=== PATIENT | male | born 1970 | race Caucasian/White ===

== ENCOUNTER 2016-12-30 07:20 | Emergency (ER) | payer OTHER ==
[2016-12-30 07:28] VITALS: BP 140/95; PULSE 81; RESP 18; TEMP 98.1
[2016-12-30] MEDS ORDERED: DIPH,PERTUS(ACELL)TETVAC-LF 0.5 ML VIAL IM ONE (08:21)
--- NOTE | 2016-12-30 08:49 | ED ---
General Adult HPI - General Chief complaint: Skin/Abscess/Foreign Body Stated complaint: Thunb laceration-[facility] Time Seen by Provider: 12/30/16 08:18 Source: patient, RN notes reviewed Mode of arrival: ambulatory Limitations: no limitations - History of Present Illness Initial comments: Patient is a 46-year-old male who presents emergency room today with a chief complaint of a laceration to the right thumb. He states he was at work moving a metal barrel when it is a sharp piece which causes laceration. States her work to come here to the emergency room to have it checked. He states tetanus is not up-to-date. He denies any other complaints or symptoms. Patient denies any recent fever, chills, shortness of breath, chest pain, back pain, abdominal pain, nausea or vomiting, numbness or tingling, dysuria or hematuria, constipation or diarrhea, headaches or visual changes, or any other complaints. - Related Data Home Medications Medication Instructions Recorded Confirmed Albuterol Inhaler [Ventolin Hfa 1 - 2 puff INHALATION RT-Q6H PRN 12/30/16 Inhaler] Albuterol Nebulized [Ventolin 2.5 mg INHALATION RT-Q6H PRN 12/30/16 12/30/16 Nebulized] Allopurinol [Zyloprim] 200 mg PO DAILY PRN 12/30/16 12/30/16 Fluticasone/Salmeterol [Advair 1 inhalation PO RT-DAILY 12/30/16 12/30/16 500-50 Diskus] Ibuprofen [Motrin] 800 mg PO TID PRN 12/30/16 12/30/16 Lansoprazole [Prevacid] 30 mg PO DAILY 12/30/16 12/30/16 Allergies Allergy/AdvReac Type Severity Reaction Status Date / Time No Known Allergies Allergy Verified 12/30/16 07:56 Review of Systems ROS Statement: Those systems with pertinent positive or pertinent negative responses have been documented in the HPI. ROS Other: All systems not noted in ROS Statement are negative. Past Medical History Past Medical History: Asthma, GERD/Reflux, Hypertension Additional Past Medical History / Comment(s): gout History of Any Multi-Drug Resistant Organisms: None Reported Past Surgical History: Orthopedic Surgery Additional Past Surgical History / Comment(s): right knee surgery, cyst removed from tailbone Past Psychological History: No Psychological Hx Reported Smoking Status: Former smoker Past Alcohol Use History: Occasional Past Drug Use History: None Reported General Exam - General Exam Comments Initial Comments: General: The patient is awake and alert, in no distress, and does not appear acutely ill. Neck: The neck is supple, there is no tenderness or JVD. Cardiovascular: There is a regular rate and rhythm. No murmur, rub or gallop is appreciated. Respiratory: Lungs are clear to auscultation, respirations are non-labored, breath sounds are equal. No wheezes, stridor, rales, or rhonchi. Musculoskeletal: Patient shows full range motion. Sensation intact. Pulses equal bilaterally 2+ strength 5/5. Neurological: A&O x 3. CN II-XII intact, There are no obvious motor or sensory deficits. Coordination appears grossly intact. Speech is normal. Skin: Patient does have small laceration superficial in nature to the volar aspect of the right thumb. No active bleeding. Measures less than a centimeter. Psychiatric: Normal mood and affect. Limitations: no limitations Course Vital Signs 12/30/16 07:23 Temperature 98.1 F Pulse Rate 81 Respiratory 18 Rate Blood Pressure 140/95 O2 Sat by Pulse 97 Oximetry Medical Decision Making - Medical Decision Making Patient's wound was cleaned here in the emergency room is no suturable wound. There is a small skin avulsion very superficial. Patient agreement that he does not need sutures. Will be discharged home. Watch for signs of infection. Since been updated. Disposition Clinical Impression: Laceration Disposition: HOME SELF-CARE Condition: Good Instructions: Laceration (ED) Additional Instructions: Please watch for any signs of infection as discussed with return here to emergency room if there is any concerns. Referrals: Donnie Bateman DO [Primary Care Provider] - 1-2 days Time of Disposition: 08:48
== END 2016-12-30 09:10 | disposition home or self-care (01) ==
LOC: EC 07:20
DX: S61.011A Laceration without foreign body of right thumb without damage to nail, initial encounter (principal); J45.909 Unspecified asthma, uncomplicated; K21.9 Gastro-esophageal reflux disease without esophagitis; I10 Essential (primary) hypertension; M10.9 Gout, unspecified; Z23 Encounter for immunization; Z87.891 Personal history of nicotine dependence; Z79.51 Long term (current) use of inhaled steroids; Z79.899 Other long term (current) drug therapy; Y99.0 Civilian activity done for income or pay; W26.8XXA Contact with other sharp object(s), not elsewhere classified, initial encounter
CPT/HCPCS: 90471; 90715; 99282

== ENCOUNTER → 2017-06-29 | Outpatient (CLI) | payer BC ==
--- NOTE | 2017-06-29 08:17 | US ---
EXAMINATION TYPE: US abdomen complete DATE OF EXAM: 06/29/2017 COMPARISON: CT dated 03/26/2012 CLINICAL HISTORY: R10.9 Unspecified Abdominal Pain. Elevated liver enzymes per patient. LUQ pain. EXAM MEASUREMENTS: Liver Length: 14.4 cm Gallbladder Wall: 0.3 cm CBD: 0.4 cm Spleen: 12.2 cm Right Kidney: 10.9 x 5.7 x 6.2 cm Left Kidney: 11.4 x 5.9 x 6.5 cm Limited study due to body habitus and bowel gas. Pancreas: not visualized due to body habitus and bowel gas Liver: difficult to penetrate Gallbladder: No stones seen Evidence for sonographic Husain's sign: No CBD: wnl Spleen: wnl Right Kidney: No hydronephrosis or masses seen Left Kidney: No hydronephrosis or masses seen Upper IVC: wnl Abd Aorta: limited visualization due to bowel gas No evident ascites. The liver is homogenous but shows increased cortical echogenicity. The intrahepatic portion of the I VC and proximal abdominal aorta are within normal limits. There is no evidence of cholelithiasis. C ommon bile duct is unremarkable. The visualized portions of the pancreas are homogenous. The spleen is unremarkable. Kidneys are symmetric and free of hydronephrosis, cortical medullary differentiati on is maintained. No renal lesions are seen. IMPRESSION: Consider hepatocellular disease, hepatic steatosis. Somewhat limited exam.
== END | disposition home or self-care (01) ==
LOC: RADUSWWP 06:56
PROVIDERS: ATTEND Family Medicine
DX: R10.9 Unspecified abdominal pain (principal)
CPT/HCPCS: 76700

== ENCOUNTER → 2017-07-21 | Outpatient (CLI) | payer BC ==
--- NOTE | 2017-07-21 09:18 | NM ---
Nuclear medicine hepatobiliary scan. HISTORY: Pain. DOSAGE: The patient received 8 ounces of ensure plus and 5 mCi of Technetium 99m Choletec. FINDINGS: There is normal hepatic extraction. The gallbladder is seen by 20 minutes. There is bilia ry to bowel clearance by 20 minutes. Ejection fraction is 78%. IMPRESSION: 1. Normal hepatobiliary exam
== END | disposition home or self-care (01) ==
LOC: RADNMMAIN 06:36
PROVIDERS: ATTEND Family Medicine
DX: R10.9 Unspecified abdominal pain (principal)
CPT/HCPCS: 78226; A9537

== ENCOUNTER 2017-07-27 11:40 | Day surgery (SDC) | payer BC ==
[2017-07-24 10:22] VITALS: BMI 34.7
[~2017-07-27 11:40] MED LIST: LACTATED RINGERS 1,000 ML IV SCH
[2017-07-27 11:57] VITALS: RESP 16; TEMP 97.2
[2017-07-27] MEDS ORDERED: LIDOCAINE 1% 20 ML VIAL (10MG/ML) FOR IV START INTRADERMA ONE (11:59)
[2017-07-27] MEDS ORDERED: fentaNYL (PF) 50 MCG/ML 2 ML AMP ONE (13:07)
[2017-07-27] MEDS ORDERED: LIDOCAINE 1% INJ 10MG/ML (20 ML MDV) ONE (13:07)
[2017-07-27] MEDS ORDERED: PROPOFOL 10 MG/ML 20 ML VIAL IV ONE (13:07)
--- NOTE | 2017-07-27 13:09 | P.GSHP ---
History of Present Illness H&P Date: 07/27/17 Chief Complaint: GERD, constipation This a 47-year-old male who's had issues with GERD patient. He presents today for EGD and colonoscopy. Past Medical History Past Medical History: Asthma, GERD/Reflux, Hypertension Additional Past Medical History / Comment(s): gout, migraines, occ wheezing, History of Any Multi-Drug Resistant Organisms: None Reported Past Surgical History: Orthopedic Surgery Additional Past Surgical History / Comment(s): right knee arthroscopy, cyst removed from tailbone Past Anesthesia/Blood Transfusion Reactions: No Reported Reaction Smoking Status: Former smoker - Past Family History Father Family Medical History: Cancer Medications and Allergies Home Medications Medication Instructions Recorded Confirmed Type Albuterol Inhaler [Ventolin Hfa 1 - 2 puff INHALATION Q6HR PRN 12/30/16 History Inhaler] Albuterol Nebulized [Ventolin 2.5 mg INHALATION Q6HR PRN 12/30/16 07/27/17 History Nebulized] Allopurinol [Zyloprim] 100 mg PO BID PRN 12/30/16 07/27/17 History Fluticasone/Salmeterol [Advair 1 inhalation PO DAILY 12/30/16 07/27/17 History 500-50 Diskus] Ibuprofen [Motrin] 800 mg PO TID PRN 12/30/16 07/27/17 History Lansoprazole [Prevacid] 30 mg PO DAILY PRN 12/30/16 07/27/17 History Telmisartan [Micardis] 80 mg PO DAILY 07/24/17 07/27/17 History Allergies Allergy/AdvReac Type Severity Reaction Status Date / Time No Known Allergies Allergy Verified 07/24/17 10:11 Surgical - Exam Vital Signs Temp Pulse Resp BP Pulse Ox 97.2 F L 83 16 133/92 98 07/27/17 11:56 07/27/17 11:56 07/27/17 11:56 07/27/17 11:56 07/27/17 11:56 - General well developed, no distress - Eyes PERRL - ENT normal pinna - Neck no masses - Respiratory normal expansion - Cardiovascular Rhythm: regular - Abdomen Abdomen: soft, non tender Assessment and Plan Assessment: GERD, constipation. We'll perform EGD and colonoscopy.
--- NOTE | 2017-07-27 13:24 | P.OP ---
Date of Procedure: 07/27/17 Preoperative Diagnosis: GERD Constipation Postoperative Diagnosis: Antral gastritis No significant hiatal hernia Mild esophagitis Normal colonoscopy Procedure(s) Performed: EGD Colonoscopy Anesthesia: MAC Surgeon: Jace Serrano Pathology: other (Antral, esophagus) Condition: stable Disposition: PACU Description of Procedure: The patient's placed on the endoscopy table in the lateral position. He received IV sedation. The gastroscope placed oropharynx and passed in the esophagus into the stomach. Scope was then placed through the pylorus. The first and second portion of the duodenum appeared normal. Scope was then brought back the antrum this. Mildly inflamed. A biopsies performed. The scope was then retroflexed and the remainder of the stomach appeared normal. There is no significant hiatal hernia. The GE junction was at 40 cm. The distal esophagus appeared mildly inflamed and a biopsies performed. The proximal esophagus appeared normal. Scope was withdrawn from patient. Next, The patient was placed on the endoscopy table in the lateral position. Digital rectal examination was performed which revealed no abnormalities. The prostate was symmetrical without nodules. Flexible colonoscope was then placed in the patient's anus and passed throughout the entire colon. The ileocecal valve was visualized. The cecum, ascending, transverse, descending and sigmoid colon were normal. The rectum was normal as well. There were no masses, polyps or diverticula noted in the entire colon.
[2017-07-27 13:49] VITALS: BP 132/91; PULSE 88
== END 2017-07-27 14:02 | disposition home or self-care (01) ==
LOC: ORWHC2ENDO 11:40
PROVIDERS: ATTEND Surgery
DX: K29.50 Unspecified chronic gastritis without bleeding (principal); K21.0 Gastro-esophageal reflux disease with esophagitis; K22.10 Ulcer of esophagus without bleeding; K59.00 Constipation, unspecified; J45.909 Unspecified asthma, uncomplicated; I10 Essential (primary) hypertension; M10.9 Gout, unspecified; G43.909 Migraine, unspecified, not intractable, without status migrainosus; Z79.51 Long term (current) use of inhaled steroids; Z79.899 Other long term (current) drug therapy; Z87.891 Personal history of nicotine dependence
CPT/HCPCS: 88305; 88312; 45378; 43239; J2001; J3010; J2704

== ENCOUNTER → 2017-08-18 | Outpatient (CLI) | payer BC ==
--- NOTE | 2017-08-19 16:43 | ECHOF ---
Referral Reason: MEASUREMENTS -------- HEIGHT: 177.8 cm WEIGHT: 108.4 kg BP: RVIDd: 3.3 cm (< 3.3) IVSd: 1.3 cm (0.6 - 1.1) LVIDd: 5.1 cm (3.9 - 5.3) LVPWd: 1.3 cm (0.6 - 1.1) IVSs: 1.6 cm LVIDs: 3.9 cm LVPWs: 1.6 cm LAESV Index (A-L): 22.30 ml/m Ao Diam: 3.2 cm (2.0 - 3.7) AV Cusp: 1.9 cm (1.5 - 2.6) LA Diam: 3.2 cm (2.7 - 3.8) EPSS: 0.7 cm MV E Nathan: 0.97 m/s MV DecT: 248 ms MV A Nathan: 0.97 m/s MV E/A Ratio: 0.99 RAP: 5.00 mmHg RVSP: 17.32 mmHg MV EF SLOPE: 108.99 mm/s (70 - 150) MV EXCURSION: 2.08 cm (> 18.000) FINDINGS -------- Sinus rhythm. This was a technically adequate study. The left ventricular size is normal. There is mild concentric left ventricular hypertrophy. Overa ll left ventricular systolic function is normal with, an EF between 55 - 60 %. The right ventricle is normal in size and function. Normal LA size by volume 22+/-6 ml/m2. The right atrium is normal in size. The aortic valve is trileaflet, and appears structurally normal. No aortic stenosis or regurgitation. The mitral valve leaflets are mildly thickened. There is trace to mild mitral regurgitation. Trace tricuspid regurgitation present. Right ventricular systolic pressure is normal at < 35 mmHg. There is no evidence of pulmonary hypertension. The pulmonic valve was not well visualized. The aortic root size is normal. Normal inferior vena cava with normal inspiratory collapse consistent with estimated right atrial pre ssure of 5 mmHg. There is no pericardial effusion. CONCLUSIONS -------- 1. Sinus rhythm. 2. This was a technically adequate study. 3. The left ventricular size is normal. 4. There is mild concentric left ventricular hypertrophy. 5. Overall left ventricular systolic function is normal with, an EF between 55 - 60 %. 6. Normal LA size by volume 22+/-6 ml/m2. 7. The aortic valve is trileaflet, and appears structurally normal. No aortic stenosis or regurgitati on. 8. The mitral valve leaflets are mildly thickened. 9. There is trace to mild mitral regurgitation. 10. Trace tricuspid regurgitation present. 11. Right ventricular systolic pressure is normal at < 35 mmHg. 12. There is no evidence of pulmonary hypertension. 13. The pulmonic valve was not well visualized. 14. The aortic root size is normal. 15. There is no pericardial effusion. [employer] SALES REPRESENTATIVE: Adrian Varela RDCS
== END | disposition home or self-care (01) ==
LOC: RADECHMAIN 15:46
PROVIDERS: ATTEND Family Medicine
DX: I08.1 Rheumatic disorders of both mitral and tricuspid valves (principal)
CPT/HCPCS: 93306

== ENCOUNTER → 2017-08-21 | Outpatient (CLI) | payer BC ==
--- NOTE | 2017-08-21 12:32 | EST ---
EXERCISE STRESS DATE OF SERVICE: 08/21/2017 AGE: 47 SEX: Male HT: 5'10" WT: 239 PROTOCOL: Misha STAGE: II DURATION OF EXERCISE: 7 minutes, 30 seconds. HEART RATE REST: 80 BLOOD PRESSURE REST: 150/80 MAXIMUM HEART RATE ACHIEVED: 151 MAXIMUM BLOOD PRESSURE: 198/85 85% MPHR: 149 100% MPHR: 175 METS: 9.1 INDICATIONS: Abnormal EKG. CLINICAL INFORMATION: Baseline EKG revealed normal sinus rhythm without significant ST-T changes. Patient walked for 7 minutes 30 seconds and achieved a maximal heart rate of 151 beats per minute which is 86% of predicted maximal. He developed fatigue and shortness of breath but did not have any angina or arrhythmia. EKG did not reveal any ST-segment changes to indicate ischemia. Rare PVCs were noted and there was no angina. EKG did not reveal any ST-segment changes to indicate ischemia. This is a negative stress test with fair exercise capacity. Peak blood pressure was 198/85. Resting blood pressure was 150/80. FINAL IMPRESSION: Negative stress test with fair exercise capacity by EKG criteria. MMODL / IJN: [id number] /
== END | disposition home or self-care (01) ==
LOC: RADNMMAIN 09:45
PROVIDERS: ATTEND Family Medicine
DX: I49.9 Cardiac arrhythmia, unspecified (principal); R07.9 Chest pain, unspecified
CPT/HCPCS: 93017

== ENCOUNTER → 2022-10-27 | Outpatient (CLI) | payer BC ==
--- NOTE | 2022-10-27 13:06 | CA ---
Exercise Stress Test Report Name: Marcos Lynn Exam Date: 10/27/2022 08:59 Exam Location: [place] Stress Ht (in): 70 Wt (lb): 238 BSA: 2.25 Ordering Phys: Donnie Bateman DO Referring Phys: IRIS, Technologist: Donnie Dai Age: 52 Gender: M : 1970 Procedure CPT: Indications: I10 Essential Hypertension ICD-10 Codes: Patient History: CHEST PAIN, PALPITATIONS, HTN, ELEVATED CHOLESTEROL LEVELS, FAMILY HX OF HEART DISEASE, PRIOR SMOKER, ASTHMA Medications: Meds past 24 hrs: Pretest Chest Pain: STRESS TEST Misha Protocol Exercise Duration (min:sec): 10:[address] Depressions (mm): Angina Score: Chin Score: Resting HR (bpm): 87 Peak HR (bpm): 158 Resting BP (mmHg): 124 / 78 Peak BP (mmHg): 200 / 66 MPHR: 170 Target HR: 145 % MPHR: 93 METS: 11.8 Total Dose: Peak Dose: Atropine: Double Product: 46324 BP Response: Stress Termination: MAX EXERTION/TARGET HR Stress Symptoms: NO SYMPTOMS Stress Summary: The patient's target heart rate was achieved ECG ANALYSIS Resting ECG: Sinus rhythm. Incomplete right bundle branch block. Atrial premature contraction. Stress ECG: Right bundle branch block. CONCLUSIONS 1. Good exercise tolerance 2. Nondiagnostic test electrocardiographic stress testing with complete right bundle branch block at peak exercise was a half a millimeter steep upsloping ST segment depression. 3. If clinically indicated an imaging stress test will be helpful Dr. Joe Macias MD (Electronically Signed) Final Date: 27 October 2022 13:05
== END | disposition home or self-care (01) ==
LOC: RADNMMAIN 08:28
PROVIDERS: ATTEND Family Medicine
DX: I45.10 Unspecified right bundle-branch block (principal); R07.9 Chest pain, unspecified; I10 Essential (primary) hypertension
CPT/HCPCS: 93017

== ENCOUNTER → 2022-11-26 | Outpatient (CLI) | payer BC ==
--- NOTE | 2022-11-26 11:53 | CA ---
Exercise Nuclear Stress Test Report Name: Marcos Lynn Exam Date: 11/26/2022 09:36 Exam Location: [place] Stress Ht (in): 72 Wt (lb): 239 BSA: 2.30 Ordering Phys: Donnie Bateman DO Referring Phys: IRIS, Technologist: KARLIE,, Age: 52 Gender: M : 1970 Procedure CPT: Indications: I10 HTN R00.2 PALPITATIONS ICD-10 Codes: Patient History: Chest pain and question on regular stress Medications: Meds past 24 hrs: Pretest Chest Pain: STRESS TEST Misha Protocol Exercise Duration (min:sec): 10:[address] Depressions (mm): Angina Score: Chin Score: Resting HR (bpm): 80 Peak HR (bpm): 162 Resting BP (mmHg): 115 / 90 Peak BP (mmHg): 146 / 72 MPHR: 170 Target HR: 145 % MPHR: 95 METS: 11.7 Total Dose: Peak Dose: Atropine: Double Product: 72872 BP Response: Stress Termination: Reached target heart rate Stress Symptoms: No chest pain or symptoms Stress Summary: ECG ANALYSIS Resting ECG: Stress ECG: CONCLUSIONS X-rays capacity 4 minutes 30 seconds on a Misha protocol Low workload achieved Normal heart rate and blood pressure response Normal EKG at baseline No ECG evidence for ischemia Dr. Raphael Stone MD (Electronically Signed) Final Date: 26 November 2022 11:53
--- NOTE | 2022-11-26 12:41 | NM ---
EXAMINATION TYPE: NM stress cardiolite complete DATE OF EXAM: 11/26/2022 COMPARISON: NONE CLINICAL INDICATION: Male, 52 years old with history of I10 HTN R00.2 PALPITATIONS; TECHNIQUE: After the intravenous administration of 9.7 mCi Tc 99m Sestamibi - Rest images obtained 4 5 minutes post injection. The patient exercised using a YASIR protocol and 1 minute prior to peak e xercise was injected with 26.1 mCi Tc 99m Sestamibi - Stress images obtained 30 minutes post injectio n. FINDINGS: Targeted heart rate was achieved during performance of the study. Review of stress and rest SPECT citlali ges demonstrates no distinct perfusion abnormality. Gated analysis shows normal wall motion with an estimated left ventricular ejection fraction of 54 %. IMPRESSION: No scintigraphic evidence for reversible ischemia
== END | disposition home or self-care (01) ==
LOC: RADNMMAIN 08:18
PROVIDERS: ATTEND Family Medicine
DX: I10 Essential (primary) hypertension (principal); R00.2 Palpitations
CPT/HCPCS: 93017; 78452; A9500

== ENCOUNTER 2023-02-09 13:38 | Emergency (ER) | payer BC ==
[2023-02-09 14:03] VITALS: RESP 18
[2023-02-09] MEDS ORDERED: HYDROCORTISONE SUPPOSITORY 25 MG SUPP RECTAL STA (14:39)
--- NOTE | 2023-02-09 14:52 | ED ---
General Adult HPI - General Chief complaint: GI Bleed Stated complaint: rectal bleed Time Seen by Provider: 02/09/23 14:08 Source: patient, RN notes reviewed Mode of arrival: ambulatory Limitations: no limitations - History of Present Illness Initial comments: Patient is a pleasant 52-year-old male presenting to the emergency department with concerns for hemorrhoids. Patient does have a history of previous hemorrhoids. Patient has had some discomfort that is resolved. Patient has had some bleeding that seems to be improved. No lightheadedness. No exertional dyspnea. - Related Data Home Medications Medication Instructions Recorded Confirmed Albuterol Inhaler [Ventolin Hfa 1 - 2 puff INHALATION Q6HR PRN 12/30/16 07/27/17 Inhaler] Albuterol Nebulized [Ventolin 2.5 mg INHALATION Q6HR PRN 12/30/16 07/27/17 Nebulized] Fluticasone Propion/Salmeterol 1 inhalation PO DAILY 12/30/16 07/27/17 [Advair 500-50 Diskus] Ibuprofen [Motrin] 800 mg PO TID PRN 12/30/16 07/27/17 Lansoprazole [Prevacid] 30 mg PO DAILY PRN 12/30/16 07/27/17 allopurinoL [Zyloprim] 100 mg PO BID PRN 12/30/16 07/27/17 Telmisartan [Micardis] 80 mg PO DAILY 07/24/17 07/27/17 Previous Rx's Medication Instructions Recorded Hydrocortisone [Anusol-Hc] 1 applic RECTAL BID #30 gm 02/09/23 Allergies Allergy/AdvReac Type Severity Reaction Status Date / Time No Known Allergies Allergy Verified 02/09/23 13:42 Review of Systems ROS Statement: Those systems with pertinent positive or pertinent negative responses have been documented in the HPI. ROS Other: All systems not noted in ROS Statement are negative. Constitutional: Denies: fever Eyes: Denies: eye pain ENT: Denies: ear pain Respiratory: Denies: cough Cardiovascular: Denies: chest pain Gastrointestinal: Reports: as per HPI Past Medical History Past Medical History: Asthma, GERD/Reflux, Hypertension Additional Past Medical History / Comment(s): gout History of Any Multi-Drug Resistant Organisms: None Reported Past Surgical History: Orthopedic Surgery Additional Past Surgical History / Comment(s): right knee surgery, cyst removed from tailbone Past Anesthesia/Blood Transfusion Reactions: No Reported Reaction Past Psychological History: No Psychological Hx Reported Past Alcohol Use History: Occasional - Past Family History Father Family Medical History: Cancer General Exam Limitations: no limitations General appearance: alert, in no apparent distress Head exam: Present: atraumatic Eye exam: Present: normal appearance Respiratory exam: Present: normal lung sounds bilaterally Cardiovascular Exam: Present: regular rate, normal rhythm GI/Abdominal exam: Present: soft. Absent: tenderness Rectal exam: Present: hemorrhoids (Moderate size nonthrombosed hemorrhoid at the 9 o'clock position without any active bleeding) Neurological exam: Present: alert Psychiatric exam: Present: normal affect, normal mood Skin exam: Present: normal color Course Vital Signs 02/09/23 13:39 Temperature 97.7 F Pulse Rate 88 Respiratory 18 Rate Blood Pressure 170/116 O2 Sat by Pulse 98 Oximetry Medical Decision Making - Medical Decision Making Was pt. sent in by a medical professional or institution (, PA, SCIENCE FACULTY MEMBER, urgent care, hospital, or long-term...) When possible be specific @ -No Did you speak to anyone other than the patient for history (EMS, parent, family, police, friend...)? What history was obtained from this source @ -No Did you review nursing and triage notes (agree or disagree)? Why? @ -I reviewed and agree with nursing and triage notes Were old charts reviewed (outside hosp., previous admission, EMS record, old EKG, old radiological studies, urgent care reports/EKG's, long-term records)? Report findings @ -No old charts were reviewed Differential Diagnosis (chest pain, altered mental status, abdominal pain women, abdominal pain men, vaginal bleeding, weakness, fever, dyspnea, syncope, headache, dizziness, GI bleed, back pain, seizure, CVA, palpatations, mental health, musculoskeletal)? @ -Differential Abdominal Pain Men: Appendicitis, cholecystitis, diverticulosis, ischemic bowel, pancreatitis, hepatitis, UTI, gastroenteritis, AAA, incarcerated hernia, bowel obstruction, constipation, inflammatory bowel, hepatitis, peptic ulcer disease, splenic infarction, perforated viscus, testicular torsion, this is not meant to be an all-inclusive list EKG interpreted by me (3pts min.). @ -As above X-rays interpreted by me (1pt min.). @ -None done CT interpreted by me (1pt min.). @ -None done U/S interpreted by me (1pt. min.). @ -None done What testing was considered but not performed or refused? (CT, X-rays, U/S, labs)? Why? @ -None What meds were considered but not given or refused? Why? @ -None Did you discuss the management of the patient with other professionals (professionals i.e. DrHeron, PA, SCIENCE FACULTY MEMBER, lab, RT, psych nurse, adoption social worker, stopping builder, teacher, neighborhood conservation officer, case management director)? Give summary @ -No Was smoking cessation discussed for >3mins.? @ -No Was critical care preformed (if so, how long)? @ -No Were there social determinants of health that impacted care today? How? (Homelessness, low income, unemployed, alcoholism, drug addiction, transportation, low edu. Level, literacy, decrease access to med. care, nursing home, rehab)? @ -No Was there de-escalation of care discussed even if they declined (Discuss DNR or withdrawal of care, Hospice)? DNR status @ -No What co-morbidities impacted this encounter? (DM, HTN, Smoking, COPD, CAD, Cancer, CVA, ARF, Chemo, Hep., AIDS, mental health diagnosis, sleep apnea, morbid obesity)? @ -None Was patient admitted / discharged? Hospital course, mention meds given and route, prescriptions, significant lab abnormalities, going to OR and other pertinent info. @ -Patient presents with symptoms of hemorrhoids, hemorrhoid eye exam with history of hemorrhoids. No active bleeding. Patient will be discharged with follow-up with surgery. Undiagnosed new problem with uncertain prognosis? @ -No Drug Therapy requiring intensive monitoring for toxicity (Heparin, Nitro, Insulin, Cardizem)? @ -No Were any procedures done? @ -No Diagnosis/symptom? @ -External hemorrhoid Acute, or Chronic, or Acute on Chronic? @ -Acute Uncomplicated (without systemic symptoms) or Complicated (systemic symptoms)? @ -default Side effects of treatment? @ -No Exacerbation, Progression, or Severe Exacerbation? @ -No Poses a threat to life or bodily function? How? (Chest pain, [place], [place], pneumonia, PE, COPD, DKA, ARF, appy, cholecystitis, CVA, Diverticulitis, Homicidal, Suicidal, threat to staff... and all critical care pts) @ -No Disposition Clinical Impression: Hemorrhoid Disposition: HOME SELF-CARE Condition: Stable Instructions (If sedation given, give patient instructions): Hemorrhoids (ED) Additional Instructions: Please do follow-up with primary care physician and surgeon in the next couple days for recheck. Return for increased pain, bleeding, lightheadedness, source of breath, worsening or changing symptoms or other concerns. Prescription is sent to pharmacy. Prescriptions: Hydrocortisone [Anusol-Hc] 1 applic RECTAL BID #30 gm Is patient prescribed a controlled substance at d/c from ED?: No Referrals: Donnie Bateman DO [Primary Care Provider] - 1-2 days Monika Mcmanus MD [STAFF PHYSICIAN] - 1-2 days Time of Disposition: 14:51
[2023-02-09 15:27] VITALS: BP 148/101; PULSE 78; TEMP 98.1
== END 2023-02-09 15:17 | disposition home or self-care (01) ==
LOC: EC 13:38
DX: K64.4 Residual hemorrhoidal skin tags (principal); I10 Essential (primary) hypertension; J45.909 Unspecified asthma, uncomplicated; K21.9 Gastro-esophageal reflux disease without esophagitis; Z79.51 Long term (current) use of inhaled steroids; Z79.899 Other long term (current) drug therapy
CPT/HCPCS: 99284